=== PATIENT | male | born 1945 | race Caucasian/White ===

== ENCOUNTER 2017-01-09 12:12 | Emergency (ER) | payer MEDICARE, OTHER ==
[~2017-01-09] VITALS: Ht 188 cm; Wt 100.0 kg
[~2017-01-09 12:12] MED LIST: ADVA100A INH; ASPI81TA11 PO; DICL50TA3 PO; ENOX40P SQ; VENTAER INH; Z.0.COMMODE-3:1; Z.0.WALKERFRONT; ZOLP10TA3 PO
[2017-01-09 12:27] VITALS: BP 188/89; PULSE 79; RESP 20; TEMP 98.5; O2SAT 99
[2017-01-09] MEDS ORDERED: ZOLO100T PO (12:36)
[2017-01-09] MEDS ORDERED: ASPI81CH CHEW (12:36)
[2017-01-09] MEDS ORDERED: ATOR40TA16 PO (12:36)
[2017-01-09] MEDS ORDERED: CIAL5TAB PO (12:36)
[2017-01-09 12:50] VITALS: BP 182/85; PULSE 85; RESP 20
--- NOTE | 2017-01-09 13:26 | PD ---
HPI Chief Complaint: GI Complaint Time Seen by Provider: 13:17 Travel History International Travel<30 days: No (0) Contact w/Intl Traveler<30days: No Traveled to known affect area: No History of Present Illness HPI 71-year-old male with history of CABG, hypertension, COPD, thoracic aortic aneurysm, chronic kidney disease, presents to the emergency department for evaluation. Patient states that he was moving, working outside, when he became extremely diaphoretic, weak, nauseous. She vomited once. He began having a pain that radiated from his left side to his back. He states he cannot control. This pain is sharp, constant. Shortness of breath. Denies chest pain. In route he has been given a liter normal saline fluid and Zofran. Patient has no other symptoms at this time. PFSH Past Medical History Arthritis: Yes Asthma: Yes (seasonal bronchial asthma) Autoimmune Disease: Yes Anxiety: No Depression: No Heart Rhythm Problems: Yes Cancer: No Cardiovascular Problems: Yes (CAD) High Cholesterol: No Chest Pain: No Congestive Heart Failure: No COPD: Yes Diabetes: No Endocrine: No Gastrointestinal Disorders: Yes (GERD) GERD: No Glaucoma: Yes Hepatitis: No Hiatal Hernia: Yes Hypertension: Yes (PAST HISTORY ONLY) Immune Disorder: Yes (ANKYLOSING SPONDYLITIS) Kidney Stones: No Medical other: Yes (SYSTEMIC ISSUES DUE TO ANKYLOSING SPONDYLITIS) Musculoskeletal: Yes (RIGHT LEG SHORTER THAN LEFT, ANKYLOSING SPONDYLITIS, LOWER BACK) Neurologic: No Psychiatric: No Reproductive: No Respiratory: Yes Renal Failure: No Sleep Apnea: Yes (patient believes he does have sleep apnea) Thyroid Disease: No Ulcer: No Past Surgical History Abdominal Surgery: No Body Medical Devices: CARDIAC STENTS, STERNAL WIRES Cardiac Surgery: No Ear Surgery: No Endocrine Surgery: No Eye Surgery: No Genitourinary Surgery: No Gynecologic Surgery: No Oral Surgery: Yes (TONSILLECTOMY) Thoracic Surgery: Yes (AORTIC ANEURYSM REPAIR) Other Surgery: Yes Social History Alcohol Use: Yes Tobacco Use: No Substance Use: No Allergies-Medications (Allergen,Severity, Reaction): Coded Allergies: Sulfa (Sulfonamide Antibiotics) (Unverified Allergy, Severe, 01/01/17) UNKNOWN hydralazine (Unverified Allergy, Severe, nausea, "wierd feeling", headache , 01/01/17) penicillin G (Unverified Allergy, Severe, Rash, 01/01/17) Reported Meds & Prescriptions Reported Meds & Active Scripts Active Keflex (Cephalexin) 500 Mg Cap 500 Mg PO Q12H 10 Days Lortab (Hydrocodone-Acetaminophen) 5-325 Mg Tab 1 Tab PO Q6H PRN 15 Days Flomax (Tamsulosin HCl) 0.4 Mg Cap 0.4 Mg PO HS 5 Days Reported Atorvastatin (Atorvastatin Calcium) 40 Mg Tab 40 Mg PO HS Zoloft (Sertraline HCl) 100 Mg Tab 100 Mg PO DAILY Cialis (Tadalafil) 5 Mg Tab 5 Mg PO DAILY Do not exceed 1 dose/day. Aspirin 81 Mg Chew 81 Mg CHEW DAILY Review of Systems Except as stated in HPI: all other systems reviewed are Neg Physical Exam Narrative GENERAL: Nourished male patient, sitting in the stretcher, appears uncomfortable , diaphoretic, in moderate distress. SKIN: Focused skin assessment warm/diaphoretic HEAD: Atraumatic. Normocephalic. EYES: Pupils equal and round. No scleral icterus. No injection or drainage. ENT: No nasal bleeding or discharge. Mucous membranes pink and moist. NECK: Trachea midline. No JVD. CARDIOVASCULAR: Regular rate and rhythm. No murmur appreciated. RESPIRATORY: No accessory muscle use. Clear to auscultation. Breath sounds equal bilaterally. GASTROINTESTINAL: Abdomen soft, non-tender, nondistended. Hepatic and splenic margins not palpable. MUSCULOSKELETAL: No obvious deformities. No clubbing. No cyanosis. No edema. NEUROLOGICAL: Awake and alert. No obvious cranial nerve deficits. Motor grossly within normal limits. Normal speech. PSYCHIATRIC: Appropriate mood and affect; insight and judgment normal. Data Data Last Documented VS Vital Signs Date Time Temp Pulse Resp B/P (MAP) Pulse Ox O2 Delivery O2 Flow Rate FiO2 01/09/17 17:23 01/09/17 13:43 99 01/09/17 12:50 85 20 01/09/17 12:27 98.5 Orders Orders Complete Blood Count With Diff (01/09/17 13:21) Comprehensive Metabolic Panel (01/09/17 13:21) Lipase (01/09/17 13:21) Prothrombin Time / Inr (Pt) (01/09/17 13:21) Act Partial Throm Time (Ptt) (01/09/17 13:21) Urinalysis - C+S If Indicated (01/09/17 13:21) Iv Access Insert/Monitor (01/09/17 13:21) Ecg Monitoring (01/09/17 13:21) Oximetry (01/09/17 13:21) Morphine Inj (Morphine Inj) (01/09/17 13:30) Ondansetron Inj (Zofran Inj) (01/09/17 13:30) Sodium Chloride 0.9% Flush (Ns Flush) (01/09/17 13:30) Electrocardiogram (01/09/17 13:21) Chest, Single Ap (01/09/17 13:21) Cta Thor Abd Aorta W Iv C W3d (01/09/17 ) I-Stat Creatinine (01/09/17 13:25) I-Stat Profile (01/09/17 13:25) Hydromorphone Pf Inj (Dilaudid Pf Inj) (01/09/17 14:00) Labs Laboratory Tests Test 01/09/17 13:25 01/09/17 16:30 White Blood Count 6.4 TH/MM3 Red Blood Count 4.15 MIL/MM3 Hemoglobin 12.1 GM/DL Bedside Hemoglobin 12.2 G/DL Hematocrit 37.1 % Bedside Hematocrit 36.0 % Mean Corpuscular Volume 89.4 FL Mean Corpuscular Hemoglobin 29.2 PG Mean Corpuscular Hemoglobin Concent 32.6 % Red Cell Distribution Width 13.5 % Platelet Count 267 TH/MM3 Mean Platelet Volume 8.0 FL Neutrophils (%) (Auto) 78.2 % Lymphocytes (%) (Auto) 7.9 % Monocytes (%) (Auto) 11.9 % Eosinophils (%) (Auto) 1.3 % Basophils (%) (Auto) 0.7 % Neutrophils # (Auto) 5.0 TH/MM3 Lymphocytes # (Auto) 0.5 TH/MM3 Monocytes # (Auto) 0.8 TH/MM3 Eosinophils # (Auto) 0.1 TH/MM3 Basophils # (Auto) 0.0 TH/MM3 CBC Comment DIFF FINAL Differential Comment Prothrombin Time 10.6 SEC Prothromb Time International Ratio 1.0 RATIO Activated Partial Thromboplast Time 29.0 SEC Bedside Sodium 133 MMOL/L Blood Urea Nitrogen 17 MG/DL Creatinine 1.18 MG/DL Random Glucose 88 MG/DL Total Protein 7.0 GM/DL Albumin 3.3 GM/DL Calcium Level 8.8 MG/DL Alkaline Phosphatase 89 U/L Aspartate Amino Transf (AST/SGOT) 27 U/L Alanine Aminotransferase (ALT/SGPT) 18 U/L Total Bilirubin 0.5 MG/DL Sodium Level 134 MEQ/L Potassium Level 4.0 MEQ/L Chloride Level 100 MEQ/L Carbon Dioxide Level 20.7 MEQ/L Bedside Potassium 3.9 MMOL/L Bedside Chloride 99 MMOL/L Anion Gap 13 MEQ/L Bedside Blood Urea Nitrogen 17 MG/DL Bedside Creatinine 1.2 MG/DL Estimat Glomerular Filtration Rate 61 ML/MIN Bedside Glucose 94 MG/DL Lipase 146 U/L Urine Color YELLOW Urine Turbidity CLEAR Urine pH 5.5 Urine Specific Gilbert 1.026 Urine Protein NEG mg/dL Urine Glucose (UA) NEG mg/dL Urine Ketones 40 mg/dL Urine Occult Blood MOD Urine Nitrite NEG Urine Bilirubin NEG Urine Urobilinogen LESS THAN 2.0 MG/DL Urine Leukocyte Esterase NEG Urine RBC 41 /hpf Urine WBC 2 /hpf Urine Squamous Epithelial Cells <1 /hpf Microscopic Urinalysis Comment CULT NOT INDICATED MDM Medical Decision Making Medical Screen Exam Complete: Yes Emergency Medical Condition: Yes Medical Record Reviewed: Yes Differential Diagnosis dehdyration vs electrolyte abnormality v dissection v ACS v renal colic v muscle spasm Narrative Course 71-year-old male presents to the emergency department for evaluation. Patient appears uncomfortable. He is treated for pain, paresis the patient is still in pain he is given additional pain control. IV fluids. Patient does have existing thoracic aortic aneurysm, this does raise concern for possible dissection, despite patient does have equal pulses bilaterally. His hypertensive. He is not tachycardic. I discussed the patient with my attending physician was also assessed the patient. I-STAT creatinine is ordered for evaluation CT aortogram. Laboratory Tests Test 01/09/17 13:25 01/09/17 16:30 White Blood Count 6.4 TH/MM3 Red Blood Count 4.15 MIL/MM3 Hemoglobin 12.1 GM/DL Bedside Hemoglobin 12.2 G/DL Hematocrit 37.1 % Bedside Hematocrit 36.0 % Mean Corpuscular Volume 89.4 FL Mean Corpuscular Hemoglobin 29.2 PG Mean Corpuscular Hemoglobin Concent 32.6 % Red Cell Distribution Width 13.5 % Platelet Count 267 TH/MM3 Mean Platelet Volume 8.0 FL Neutrophils (%) (Auto) 78.2 % Lymphocytes (%) (Auto) 7.9 % Monocytes (%) (Auto) 11.9 % Eosinophils (%) (Auto) 1.3 % Basophils (%) (Auto) 0.7 % Neutrophils # (Auto) 5.0 TH/MM3 Lymphocytes # (Auto) 0.5 TH/MM3 Monocytes # (Auto) 0.8 TH/MM3 Eosinophils # (Auto) 0.1 TH/MM3 Basophils # (Auto) 0.0 TH/MM3 CBC Comment DIFF FINAL Differential Comment Prothrombin Time 10.6 SEC Prothromb Time International Ratio 1.0 RATIO Activated Partial Thromboplast Time 29.0 SEC Bedside Sodium 133 MMOL/L Blood Urea Nitrogen 17 MG/DL Creatinine 1.18 MG/DL Random Glucose 88 MG/DL Total Protein 7.0 GM/DL Albumin 3.3 GM/DL Calcium Level 8.8 MG/DL Alkaline Phosphatase 89 U/L Aspartate Amino Transf (AST/SGOT) 27 U/L Alanine Aminotransferase (ALT/SGPT) 18 U/L Total Bilirubin 0.5 MG/DL Sodium Level 134 MEQ/L Potassium Level 4.0 MEQ/L Chloride Level 100 MEQ/L Carbon Dioxide Level 20.7 MEQ/L Bedside Potassium 3.9 MMOL/L Bedside Chloride 99 MMOL/L Anion Gap 13 MEQ/L Bedside Blood Urea Nitrogen 17 MG/DL Bedside Creatinine 1.2 MG/DL Estimat Glomerular Filtration Rate 61 ML/MIN Bedside Glucose 94 MG/DL Lipase 146 U/L Urine Color YELLOW Urine Turbidity CLEAR Urine pH 5.5 Urine Specific Gilbert 1.026 Urine Protein NEG mg/dL Urine Glucose (UA) NEG mg/dL Urine Ketones 40 mg/dL Urine Occult Blood MOD Urine Nitrite NEG Urine Bilirubin NEG Urine Urobilinogen LESS THAN 2.0 MG/DL Urine Leukocyte Esterase NEG Urine RBC 41 /hpf Urine WBC 2 /hpf Urine Squamous Epithelial Cells <1 /hpf Microscopic Urinalysis Comment CULT NOT INDICATED Last Impressions Chest X-Ray 01/09/17 1321 Signed Impressions: Service Date/Time: Monday, January 09, 2017 14:05 - CONCLUSION: Left lower lobe airspace disease and small left effusion. Eduardo Aldridge MD Aorta CTA 01/09/17 0000 Signed Impressions: Service Date/Time: Monday, January 09, 2017 14:37 - CONCLUSION: 1. 5 mm calcified calculus at the left UVJ with resultant mild left hydroureteronephrosis. Additional 4 mm nonobstructing calyceal calcified calculus in the inferior pole of the left kidney. 2. Slightly limited evaluation of the aorta do to suboptimal arterial phase bolus timing. No evidence for aortic aneurysm or gross aortic dissection. 3. Nearly masslike configuration focal airspace consolidation in the posterior superior segment of the left lower lobe with associated small simple appearing left pleural effusion. Additional small focal airspace consolidation slightly more anteriorly near the left lung base with apparent small manolo-pleural lymph nodes posteriorly. Differential considerations include rounded atelectasis secondary to chronic pleural effusion in this patient with history of CABG versus inflammatory/infectious disease versus malignancy. Clinical correlation is recommended. Further characterization may be performed with PET CT exam if patient has no history of inflammatory or infectious disease. Otherwise, followup to resolution following appropriate course of treatment is recommended. 4. Additional findings include multiple cystic renal lesions some of which are too small to fully characterize, small hiatal hernia, postsurgical features of prior CABG, and centrilobular emphysema of the lungs. Roby Jhaveri MD I have revealed all of the findings with the patient. He states he is aware of "something in his left lung" the questions what he should do. I did explain to him that there is possibility that this could be malignancy and also discussed the other options. I stressed the importance of follow-up. Patient will be given pain medication, Flomax, and is encouraged to seek urology evaluation. Patient agrees to return immediately with any acute worsening of symptoms. Diagnosis Primary Impression: Renal calculus, left Additional Impressions: Hydroureteronephrosis Pleural effusion, left Left flank pain Referrals: Primary Care Physician Critical Care Unit Manager Urologist Patient Instructions: Flank Pain (ED), General Instructions, How to Strain Your Urine (ED), Kidney Stones (ED), Pleural Effusion (ED) Additional Instructions: Maintain adequate oral hydration Follow-up with her primary care provider Seek urology evaluation for your kidney stones Seek pulmonology evaluation and your primary care evaluation for prompt follow- up of the findings in your left lower lobe. This could be a chronic pleural effusion versus malignancy versus inflammatory or infectious process. Do not delay follow-up Return immediately with any acute worsening of symptoms Med/Other Pt SpecificInfo: Prescription(s) given Scripts Cephalexin (Keflex) 500 Mg Cap 500 MG PO Q12H for Infection for 10 Days, CAP 0 Refills Prov: Gillian May 01/09/17 Hydrocodone-Acetaminophen (Lortab) 5-325 Mg Tab 1 TAB PO Q6H Y for PAIN GREATER THAN 6 for 15 Days, TAB 0 Refills Prov: Gillian May 01/09/17 Tamsulosin (Flomax) 0.4 Mg Cap 0.4 MG PO HS for Manage Prostate Problems for 5 Days, CAP 0 Refills Prov: Gillian May 01/09/17 Disposition: 01 DISCHARGE HOME Condition: Stable Gillian May Jan 09, 2017 13:26
[2017-01-09] MEDS ORDERED: MORPHINE SULFATE 4 MG/ML INJ IV PUSH ONE (13:30)
[2017-01-09] MEDS ORDERED: SODIUM CHLORIDE 0.9% FLUSH 10 ML FLUSH IV FLUSH PRN (13:30)
[2017-01-09] MEDS ORDERED: ONDANSETRON HCL 4 MG/2 ML VIAL IVP ONE (13:30)
--- NOTE | 2017-01-09 13:32 | PD ---
Physical Exam Date Seen by Provider: Jan 09, 2017 Narrative This patient presents with chief complaint of left flank pain. This patient appears very uncomfortable. Positive left CVA tenderness. Data Data Last Documented VS Vital Signs Date Time Temp Pulse Resp B/P (MAP) Pulse Ox O2 Delivery O2 Flow Rate FiO2 01/09/17 12:50 85 20 182/85 (117) 01/09/17 12:27 98.5 99 Orders Orders Complete Blood Count With Diff (01/09/17 13:21) Comprehensive Metabolic Panel (01/09/17 13:21) Lipase (01/09/17 13:21) Prothrombin Time / Inr (Pt) (01/09/17 13:21) Act Partial Throm Time (Ptt) (01/09/17 13:21) Urinalysis - C+S If Indicated (01/09/17 13:21) Iv Access Insert/Monitor (01/09/17 13:21) Ecg Monitoring (01/09/17 13:21) Oximetry (01/09/17 13:21) Morphine Inj (Morphine Inj) (01/09/17 13:30) Ondansetron Inj (Zofran Inj) (01/09/17 13:30) Sodium Chloride 0.9% Flush (Ns Flush) (01/09/17 13:30) Electrocardiogram (01/09/17 13:21) Chest, Single Ap (01/09/17 13:21) Cta Thor Abd Aorta W Iv C W3d (01/09/17 ) I-Stat Creatinine (01/09/17 13:25) MDM Supervised Visit with MARIXA: Yes Narrative Course I, Dr. Rogers, have reviewed the advance practice practitioner's documentation and am in agreement, met with the patient face to face, made the diagnosis, and the medical decision making was done by me. *My assessment and Findings: Very uncomfortable appearing elderly man with acute left flank pain. He probably has a kidney stone but will be evaluated for possible aneurysm. Pricila Rogers MD Jan 09, 2017 13:32
[2017-01-09 13:41] LABS: BASOPHIL % 0.7 % (0.0-2.0); EOSINOPHIL # 0.1 TH/MM3 (0-0.4); EOSINOPHIL % 1.3 % (0.0-4.0); HEMATOCRIT 37.1 % (39.0-51.0); HEMO FLAGS DIFF FINAL; LYMPH % 7.9 % (9.0-44.0); LYMPHOCYTE # 0.5 TH/MM3 (1.0-4.8); MEAN CELL VOLUME 89.4 FL (80.0-100.0); MEAN CORPUSCULAR HEMOGLOBIN 29.2 PG (27.0-34.0); MEAN CORPUSCULAR HGB CONC 32.6 % (32.0-36.0); MONO % 11.9 % (0.0-8.0); NEUT % 78.2 % (16.0-70.0); PLATELET COUNT 267 TH/MM3 (150-450); RED BLOOD COUNT 4.15 MIL/MM3 (4.50-5.90); RED CELL DISTRIBUTION WIDTH 13.5 % (11.6-17.2); WHITE BLOOD COUNT 6.4 TH/MM3 (4.0-11.0)
[2017-01-09 13:43] VITALS: O2SAT 99
[2017-01-09 13:46] LABS: I-STAT POTASSIUM 3.9 MMOL/L (3.5-4.9)
[2017-01-09 13:57] LABS: PROTHROMBIN TIME - PATIENT 10.6 SEC (9.8-11.6)
[2017-01-09] MEDS ORDERED: HYDROmorphone HCL PF 1 MG/ML VIAL IV PUSH ONE (14:00)
[2017-01-09 14:28] LABS: ALT (GPT) 18 U/L (12-78); ANION GAP 13 MEQ/L (5-15); AST (GOT) 27 U/L (15-37); BICARBONATE 20.7 MEQ/L (21.0-32.0); BLOOD UREA NITROGEN 17 MG/DL (7-18); CHLORIDE 100 MEQ/L (98-107); GLOMERULAR FILTRATION RATE 61 ML/MIN (>89); SODIUM (NA) 134 MEQ/L (136-145)
[2017-01-09 14:31] LABS: ALKALINE PHOSPHATASE 89 U/L (45-117); TOTAL BILIRUBIN ADULT 0.5 MG/DL (0.2-1.0)
[2017-01-09] MEDS ORDERED: IOHEXOL 350 MG/ML 10 ML VIAL (for RAD DIAG) IVCONTRAST ONE (14:37)
--- NOTE | 2017-01-09 14:42 | RADRPT ---
EXAM DATE/TIME: 01/09/2017 14:05 [facility] COMPARISON: No previous studies available for comparison. INDICATIONS : Short of breath. Weak and short of breath after feeling heat exhaustion. MEDICAL HISTORY : Cardiovascular disease. SURGICAL HISTORY : Coronary artery stent. CABG. ENCOUNTER: Initial ACUITY: 1 day PAIN SCORE: 0/10 LOCATION: Bilateral chest FINDINGS: Cardiomegaly, patchy left lower lobe airspace disease and small left effusion. Sternotomy wires are e vident. Degenerative changes of the spine. CONCLUSION: Left lower lobe airspace disease and small left effusion. Eduardo Aldridge MD on January 09, 2017 at 14:40 Board Certified Radiologist. This report was verified electronically.
--- NOTE | 2017-01-09 16:34 | RADRPT ---
EXAM DATE/TIME: 01/09/2017 14:37 [facility] COMPARISON: CHEST PA & LAT, July 05, 2014, 9:40. INDICATIONS : Left posterior lower chest pain IV CONTRAST: 70 cc Omnipaque 350 (iohexol) IV RADIATION DOSE: 12.19 CTDIvol (mGy) MEDICAL HISTORY : Hyperparathyroidism. Chronic obstructive pulmonary disease. Cardiovascular diseaseRenal disease SURGICAL HISTORY : CABG ENCOUNTER: Initial ACUITY: 1 day PAIN SCALE: 4/10 LOCATION: Left lower posterior chest TECHNIQUE: Volumetric scanning was performed using a multi-row detector CT scanner. The data was post processed with a variety of visualization algorithms including full volume maximum intensity projection, multi -planar sliding thin slab reformation, curved planar reformation, and surface rendering techniques. Using automated exposure control and adjustment of the mA and/or kV according to patient size, radiat ion dose was kept as low as reasonably achievable to obtain optimal diagnostic quality images. DICOM format image data is available electronically for review and comparison. FINDINGS: LUNGS: There is airspace consolidation in the posterior superior segment of the left lower lobe with somewha t masslike configuration measuring approximately 4.3 x 2.7 cm. More caudally, there is mild airspace consolidation associated with a small simple appearing effusion. Slightly more anteriorly with in the left lower lobe there is a peripheral nearly nodular focal airspace consolidation measuring 2.2 x 1. 1 cm. There are several small posterior pleural nodular opacities in the left lung base measuring up to 9 mm. Focal hyperlucent lung is noted in the right lung base as well as multiple more focal lesion s in the upper lobes bilaterally consistent with centrilobular emphysema. MEDIASTINUM: There are multiple small subcentimeter mediastinal lymph nodes which do not meet CT size criteria. Mo derate coronary calcifications and postsurgical features of prior CABG. Heart is otherwise unremarkab le without significant pericardial effusion. ABDOMEN: There is a small hiatal hernia. Mild diffuse decreased hepatic attenuation without significant focal mass. Gallbladder is surgically absent. Spleen is borderline in size. Adrenal glands and pancreas are unremarkable. Kidneys demonstrate symmetrical enhancement. There is a mild left hydroureteronephrosi s extending to the left UVJ. There is a 5 mm calcified calculus at the left UVJ. There is an addition al nonobstructing calyceal calcified calculus measuring 4 mm in the inferior pole of the left kidney. There is mild left perinephric stranding. No evidence for radiopaque renal calculi or hydronephrosis on the right. There are multiple bilateral renal cystic lesions. Largest on the left measures 2.9 x 3.7 cm and is simple fluid density. Other lesions are too small to fully characterize. There is moder ate severe sigmoid diverticulosis and additional scattered diverticula throughout the colon. Bowel ot herwise appears unremarkable. No evidence for obstruction or free air. No significant free fluid or d rainable fluid collection. PELVIS: No evidence of free fluid or pelvic mass. No abnormally enlarged inguinal or retroperitoneal lymph no sherlyn are present. The bladder is unremarkable. THORACIC AORTA: There is suboptimal arterial phase enhancement. The thoracic aorta is normal in caliber without evide nce for aneurysm. Evaluation for dissection is limited although there is no significant dissection de monstrated. There is then a 3 vessel arch anatomy. Proximal arch vessels are patent. Pulmonary arteri es are patent centrally. ABDOMINAL AORTA: Abdominal aorta is normal in caliber without evidence for aneurysm. Again, evaluation for dissection is limited although no gross dissection is demonstrated. There are patent single bilateral renal josette bernarda. Celiac, SMA, and CHARITY are patent. PELVIC VESSELS: The internal iliac and external iliac vessels are patent without aneurysm or stenosis. CONCLUSION: 1. 5 mm calcified calculus at the left UVJ with resultant mild left hydroureteronephrosis. Additional 4 mm nonobstructing calyceal calcified calculus in the inferior pole of the left kidney. 2. Slightly limited evaluation of the aorta do to suboptimal arterial phase bolus timing. No evidence for aortic aneurysm or gross aortic dissection. 3. Nearly masslike configuration focal airspace consolidation in the posterior superior segment of th e left lower lobe with associated small simple appearing left pleural effusion. Additional small foca l airspace consolidation slightly more anteriorly near the left lung base with apparent small manolo-pl eural lymph nodes posteriorly. Differential considerations include rounded atelectasis secondary to c hronic pleural effusion in this patient with history of CABG versus inflammatory/infectious disease v ersus malignancy. Clinical correlation is recommended. Further characterization may be performed with PET CT exam if patient has no history of inflammatory or infectious disease. Otherwise, followup to resolution following appropriate course of treatment is recommended. 4. Additional findings include multiple cystic renal lesions some of which are too small to fully sacha racterize, small hiatal hernia, postsurgical features of prior CABG, and centrilobular emphysema of t he lungs. Roby Jhaveri MD on January 09, 2017 at 15:53 Board Certified Radiologist. This report was verified electronically.
[2017-01-09] MEDS ORDERED: CEPH-460 PO (17:10)
[2017-01-09] MEDS ORDERED: TAMS5CAP PO (17:10)
[2017-01-09] MEDS ORDERED: HYDR-3533 PO (17:10)
[2017-01-09 17:17] LABS: BLOOD, URINE MOD (NEG); COMMENT (UR) CULT NOT INDICATED; CULTURE IF INDICATED CULT NOT INDICATED; GLUCOSE,URINE NEG (NEG); KETONE, URINE 40 mg/dL (NEG); NITRITE,URINE NEG (NEG); PH, URINE 5.5 (5.0-8.5); SQUAMOUS EPITHELIAL CELL URINE <1 /hpf (0-5); URINE COLOR YELLOW (YELLW/STRAW)
--- NOTE | 2017-01-10 08:37 | EKG ---
Date Performed: 01/09/2017 Time Performed: 13:47:41 PTAGE: 71 years EKG: Sinus rhythm NORMAL ECG PREVIOUS TRACING : 07/05/2014 08.43 No significant change from previous tracing noted. DOCTOR: Fernando Brown Interpretating Date/Time 01/10/2017 08:36:17
== END 2017-01-09 17:24 | disposition home or self-care (01) ==
LOC: NEPC 12:12
DX: N13.2 Hydronephrosis with renal and ureteral calculous obstruction (principal); J90 Pleural effusion, not elsewhere classified; J44.9 Chronic obstructive pulmonary disease, unspecified; I25.10 Atherosclerotic heart disease of native coronary artery without angina pectoris; R06.02 Shortness of breath; Z95.1 Presence of aortocoronary bypass graft
CPT/HCPCS: 71010; 71275; 74174; 80053; 81001; 82435; 82565; 82947; 83690; 84132; 84295; 84520; 85025; 85610; 85730; 93005; 96374; 96375; 99285; J1170; J2270; J2405; Q9967